=== PATIENT | female | born 1990 | race Caucasian/White ===

== ENCOUNTER 2023-08-01 18:12 | Emergency (ER) | payer OTHER, SELFPAY ==
[2023-08-01] VITALS (12 sets, daily range): BP systolic 132–155; BP diastolic 72–89; PULSE 67–99; RESP 18–20; TEMP 36.6–37.2; O2SAT 96–100; BMI 41.9
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
--- NOTE | ~2023-08-01 | CT_ITS ---
EXAMINATION: Left shoulder CT without IV contrast CLINICAL INFORMATION: Dislocation. Question persistent subluxation COMPARISON: Previous x-rays from earlier the same day TECHNIQUE: Axial images through the left shoulder without contrast. Sagittal and coronal reconstructions on the technologist workstation. This CT examination was performed using dose optimization techniques as appropriate, variously including the following: *Automated exposure control *Adjustment of mA and/or kV according to patient size (this includes techniques or standardized protocols for targeted exams where dose is matched to indication/reason for exam; i.e. extremities or head) *Use of iterative reconstruction technique DLP 5 2 3 mgy/cm FINDINGS: Bone alignment is normal fracture or dislocation. The acromioclavicular and glenohumeral joints are normal. Soft tissues are normal. The visualized left lung is clear. No chest wall mass or enlarged axillary lymph nodes. Small left lower cervical and left axillary lymph nodes. CT/CT shoulder LT wo IV con IMPRESSION: Normal glenohumeral alignment. No fracture.
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
--- NOTE | ~2023-08-01 | XR_ITS ---
EXAMINATION: XR SHOULDER, LEFT CLINICAL INFORMATION: Left shoulder pain and injury COMPARISON: None available. TECHNIQUE: Three views of the left shoulder. FINDINGS: There is dislocation of the left glenohumeral joint with with the femoral head positioned posteriorly. No fracture. Acromioclavicular alignment is anatomic. No abnormal soft tissue calcifications. XR/XR shoulder LT min 2V IMPRESSION: Posterior dislocation of the left glenohumeral joint.
[2023-08-01] MEDS: ondansetron HCL 4 MG/2 ML VIAL IVPUSH (19:18)
[2023-08-01] MEDS: HYDROmorphone HCl 1 MG/ML SYRINGE IVPUSH (19:18)
--- NOTE | 2023-08-01 19:20 | PC.NURSE ---
Emily at bedside discussing pt care and inserting IV for pt.
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
--- NOTE | 2023-08-01 19:48 | PC.NURSE ---
Dr. kong at bedside 1947- propofol given to pt 1948- 30 propofol given to pt 1950- 20 propofol given to pt shoulder set at 1952 by
[2023-08-01] MEDS: propofoL 200 MG/20 ML VIAL 100 MG IVPUSH (20:01)
--- NOTE | 2023-08-01 20:31 | PC.NURSE ---
pt a&ox3. respirations even and unlabored. pt able to move extremities freely, pt tolerated procedure well. pt alert at 15 minute vital sign shamika.
--- NOTE | 2023-08-01 23:10 | PC.NURSE ---
Pt a&O, no sob or chest pain, reviewed discharge instruction with pt. pt verbalized understanding. No sign of distress. Notified RN Karol
== END 2023-08-01 23:14 | disposition home or self-care (01) ==
PROVIDERS: Emergency Provider Emergency Medicine
DX: S43.005A Unspecified dislocation of left shoulder joint, initial encounter (principal); M25.512 Pain in left shoulder; M25.532 Pain in left wrist; M25.522 Pain in left elbow; V11.4XXA Pedal cycle driver injured in collision with other pedal cycle in traffic accident, initial encounter; Y93.9 Activity, unspecified; Y92.480 Sidewalk as the place of occurrence of the external cause; Y99.9 Unspecified external cause status
CPT/HCPCS: 23655; 29105; 36569; 73030; 73080; 73110; 73200; 96374; 96375; 99284; 99285; J1170; J2405

== ENCOUNTER 2023-08-10 12:51 | Outpatient (AMB) | payer OTHER, SELFPAY ==
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
== END 2023-08-10 13:20 | disposition home or self-care (01) ==
PROVIDERS: Visit Provider Orthopaedic Surgery
DX: M25.312 Other instability, left shoulder (principal)
CPT/HCPCS: 99202

== ENCOUNTER → 2023-08-10 12:51 | Outpatient (BNVA) | payer OTHER, SELFPAY | PROVIDERS: Visit Provider Orthopaedic Surgery | DX: M25.312 Other instability, left shoulder (principal) | CPT/HCPCS: 99202 ==